=== PATIENT | female | born 1975 | race Caucasian/White ===

== ENCOUNTER → 2023-03-11 10:09 | Outpatient (CLI) | payer BC, SELFPAY ==
[2023-03-11 10:59] LABS: Basophils % 0.4 % (0.1-2.0); Eosinophils # 0.2 K/mm3 (0.0-0.4); Eosinophils % 2.5 % (0.1-12.0); Hematocrit 40.6 % (37.0-47.0); Hemoglobin 13.3 g/dL (12.2-16.2); Lymphocytes # 1.8 K/mm3 (0.7-4.5); Lymphocytes % 23.1 % (10-50); Mean Corpuscular HGB Conc 32.7 g/dL (31.8-35.4); Mean Corpuscular Hemoglobin 29.4 pg (27.0-31.2); Mean Corpuscular Volume 89.8 fl (81-99); Monocytes # 0.5 K/mm3 (0.1-1.0); Monocytes % 6.5 % (1.7-9.3); Neutrophils # 5.1 K/mm3 (1.8-7.8); Neutrophils % 67.5 % (37.0-80.0); Platelet Count 239 K/mm3 (142-424); Red Blood Count 4.52 M/mm3 (4.20-5.40); Red Cell Distribution Width 13.9 % (11.5-17.5); White Blood Count 7.6 K/mm3 (4.8-10.8)
[2023-03-11 11:21] LABS: Alanine Aminotransferase 27 U/L (12-78); Albumin Level 4.2 g/dl (3.5-5.0); Albumin/Globulin Ratio 1.4 (1.1-1.8); Alkaline Phosphatase 96 U/L (38-126); Anion Gap 12.6 mEq/L (5-15); Aspartate Amino Transferase 26 U/L (14-36); Bilirubin,Total 0.4 mg/dl (0.2-1.3); Blood Urea Nitrogen 18 mg/dl (7-17); Calcium 9.3 mg/dl (8.4-10.2); Carbon Dioxide 29 mmol/L (22.0-30.0); Chloride 103 mmol/L (98-107); Estimated Glomerular Filt Rate 106 ml/min (>60); GFR (African American) 129 ML/MIN (>60); Glucose 98 mg/dl (74-100); Potassium 3.6 mmoL/L (3.5-5.1); Sodium 141 mmol/L (136-145); Total Protein,Serum 7.2 g/dl (6.3-8.2)
[2023-03-11 11:43] LABS: HCG,Quantitative < 2 mIU/ml (0-5.42)
== END ==
LOC: LAB 10:10
PROVIDERS: PCP Nurse Practitioner Family; Visit Provider Obstetrics & Gynecology
DX: N93.9 Abnormal uterine and vaginal bleeding, unspecified (principal)
CPT/HCPCS: 36415; 80053; 84702; 85025

== ENCOUNTER 2023-03-18 09:45 | Day surgery (SDC) | payer BC, SELFPAY ==
[2023-03-16 14:06] VITALS: BMI 49.8
[2023-03-18] VITALS (11 sets, daily range): BP systolic 100–155; BP diastolic 61–87; PULSE 62–74; RESP 14–18; TEMP 36.2–43; O2SAT 95–100
--- NOTE | 2023-03-18 10:19 | EXP.ANES.CKL ---
[facility] Disclaimer: The information contained in this section may have been updated after the patient was seen, as this information can be updated by other users. Medical History History of fracture of right ankle History of gastroesophageal reflux (GERD) History of hyperlipidemia History of hypertension Surgical History History of surgery on lower extremity Family History Other Anemia Asthma Cancer Coronary artery disease Diabetes FHx: mental illness Heart attack Hyperlipidemia Hypertension Kidney disease Social History Smoking Status: Never smoker alcohol intake: never substance use type: denies use current occupational status: employed Travel in the last 8 weeks: None [facility] Anesthesia Checklist Patient Identification Patient Identification: Arm Band and Verbal (Name & ) Structural Data Admitted From: Home Planned Operative Procedure/s: Hyst/D & C Consent for Planned Operative Procedure(s) Verified: Yes NPO Status Verified Time NPO: 00:00 Chart Verification Results Verified: HCG Additional verifications Anesthesia Reactions: No Hx Blood Transfusions: No Blood Transfusion Reaction: No Airway Assessment Mallampati Score:: Class III C-Spine Mobility Assessed: Yes TMJ Mobility Assessed: Yes Dentition: Good Dentition Neurological Assessment Level of Consciousness: Awake Hx Seizures: No Numbness or tingling in extremities: No Anesthesia Plan Anesthesia Risk discussed: Yes Anesthesia Plan: Verified ASA Class: III Anesthesia Type: General
--- NOTE | 2023-03-18 13:01 | P.PNANES_ITS ---
[facility] Anesthesia Record Part I Anesthesia Record I Intake, IV Amount: 1,100 Hydration: Adequate Estimated blood loss (mL): 50 Urine output (mL): 15 Blood Products used (#): none Blood Pressure: 100/64 SaO2: 99 Pulse Rate: 74 Airway Patency: Patent Respiratory Rate: 16 Temperature: 97.2 F Patient is:: Drowsy and Stable Stable to PACU at:: 12:50
--- NOTE | 2023-03-18 13:50 | EXP.OP.NOTE ---
Date of procedure: 03/18/23 Pre-op Diagnosis:: 1. Pelvic pain 2. Fibroid uterus 3. Thickened endometrial stripe 4. Abnormal uterine bleeding 5. Obesity, BMI: 49 Post-op Diagnosis:: 1. Pelvic pain 2. Fibroid uterus 3. Thickened endometrial stripe 4. Abnormal uterine bleeding 5. Obesity, BMI: 49 6. Endometrial polyp Procedure performed:: pap smear, Hysteroscopy, dilation, and MyoSure curettage and polypectomy Surgeon:: Isabelle Rodriguez DO [employer]:: Other ([place]) Anesthesia: GETA Estimated blood loss (mL): 50 Operative findings:: Findings: -EUA was difficult given body habitus. I was unable to palpate the uterine body or any adnexal masses. Narrowed vaginal introidus. no significant prolapse or support defects noted. -Hysteroscopy revealed 1 endometrial polyp that was approximately 1 to 2 cm, and appeared pedunculated. Operative note:: The patient was taken back to the OR where general anesthesia was obtained.? She was placed in the dorsal lithotomy position using yellow fin stirrups and a pap smear was collected in the normal fashion with a small plastic speculum from the office. The pt was sterilely prepped and draped in the usual fashion.? An in and out catheter was used to drain her bladder.? A timeout was performed.? A weighted speculum was attempted to be used however it was too large to fit into the vaginal introitus and a right angle retractor was used to visualize this cervix, a single-tooth tenaculum was applied to the anterior lip of the cervix. The cervix was only slightly dilated to allow entry to the ectocervix and hydrodisection was used to get the scope the rest of the way into the cavity. The hysterscope was inserted and a small endometrial polyp was noted as described above. Images were obtained of the cavity. The tubal ostia were visualized and no abnormalities were noted.? Decision was made to proceed with the MyoSure for polypectomy. Device set up, primed and zeroed. The device was used to resect the outer edge of the polyp until the complete polyp was removed down to the base. The fluid management system was not working well and while we accounted for fluid deficits in the suction canister the fluid management system was saying there was a large deficit. The patient was doing well with normal vital signs no suspicion for uterine perforation or excessive fluid deficit. The fluid in the cannister was 5700mL and we used two 3L bags of fluids. A #2 sharp currette was used to collect a sample from the uterine brown and the endometrial curettings were collected on a Telfa pad, passed off the operative field and sent to pathology for further evaluation.? The single-tooth tenaculum was removed and hemostasis was noted at the tenaculum sites.? All instruments were removed from the vagina.? All counts were correct, per nursing.? This concluded the procedure, the patient was awakened from anesthesia, and transferred to the PACU in stable condition. Condition: stable Disposition: PACU Specimens:: Endometrial polyp and curettings Complications:: None
[2023-03-19 11:33] VITALS: BP 124/72; PULSE 67; RESP 14; TEMP 36.2; O2SAT 98
--- NOTE | 2023-03-19 11:33 | EXP.ANES.II ---
[facility] Anesthesia Record Part II Anesthesia Record Part II Discharge Time: 13:20 Destination: Surgical Day Care (OP Surgery) PACU nurse assessment reviewed?: Yes Patient Condition:: Good Anesthesia Complications:: None Swallowing reflex intact?: Yes Airway Patency: Patent Cyanosis?: No Blood Pressure: 124/72 SaO2: 98 Respiratory Rate: 14 Pulse Rate: 67 Temperature: 97.2 F Mental Status: Alert & Oriented Pain level:: 0 Nausea and/or vomitting:: None Intake, IV Amount: 0 Hydration: Adequate
== END 2023-03-18 13:58 | disposition home or self-care (01) ==
PROVIDERS: PCP Nurse Practitioner Family; Visit Provider Obstetrics & Gynecology
PROC: (CPT 58558; principal; 2023-03-18 11:30)
DX: N84.0 Polyp of corpus uteri (principal); D25.9 Leiomyoma of uterus, unspecified; N93.9 Abnormal uterine and vaginal bleeding, unspecified; R10.2 Pelvic and perineal pain
CPT/HCPCS: 58558; J2405